=== PATIENT | female | born 1965 | race Caucasian/White ===

== ENCOUNTER 2017-11-30 07:17 | Day surgery (SDC) | payer BC ==
[~2017-11-30] VITALS: Ht 157.5 cm; Wt 74.8 kg
[~2017-11-30 07:17] MED LIST: BACTRIM DS1 TAB OR; FLONASE NASAL50 MCG; MEDDOSEPAK PO; SYNTHROID25 MCG PO; VITAMIN A PO; VITAMIN C1000 MG PO; VITAMIN7 PO; ZITHROMAX250 MG PO; ZYRTEC10 MG OR
[2017-11-30 09:03] VITALS: BP 117/66
== END 2017-11-30 08:55 | disposition home or self-care (01) | DRG 951 ==
LOC: ENDO 07:17
PROVIDERS: ATTEND Surgery
PROC: 0DJD8ZZ Inspection of Lower Intestinal Tract, Via Natural or Artificial Opening Endoscopic (ICD-10-PCS; principal; 2017-11-30)
DX: Z12.11 Encounter for screening for malignant neoplasm of colon (principal)